=== PATIENT | female | born 1980 ===

== ENCOUNTER 2016-08-18 13:31 | Emergency (ER) | payer MEDICAID ==
[~2016-08-18] VITALS: Ht 157.5 cm; Wt 59.0 kg
[~2016-08-18 13:31] MED LIST: CYMBALTA20 MG PO; ORTHO-NOVUM 1-1 EACH PO; ZOLOFT50 MG PO
== END 2016-08-18 14:10 | disposition short-term general hospital (02) ==
LOC: ER 13:31
DX: R59.0 Localized enlarged lymph nodes (principal)